=== PATIENT | female | born 1990 | race Caucasian/White ===

== ENCOUNTER → 2016-06-13 | Outpatient (CLI) | payer OTHER ==
[~2016-06-13] MED LIST: ACET50TA PO; IBUP80TA PO; IRON65TA PO; LABE20TAB PO; MOTR200T44 PO; PERC5TAB6 PO; PERCOCET PO; PRENTAB40 PO; PRENTAB55 PO; PROC10CA PO
--- NOTE | 2016-06-13 18:01 | REP ---
Obstetric sonography: History: Supervision of for anatomy. Findings: Scanning through the gravid uterus demonstrates a viable single intrauterine gestation in a cephalic lie. motion is observed and heart rate is recorded at 158 beats per minute. An anterior grade zero placenta is seen without evidence of previa or abruption. Amniotic fluid is subjectively normal. Closed cervical length is measured at 3.8 cm transabdominally. No extrauterine abnormality is observed. No anomaly is seen. There was less than optimal visualization of face and profile, three-vessel cord, kidneys, and spine due to position. The following anatomic structures are identified and felt to be unremarkable: cranium, choroid plexus, cavum, cerebellum and posterior fossa, lungs, four-chamber heart with left and right ventricular outflow tract views, diaphragm, left-sided stomach, abdominal wall cord insertion, urinary bladder, upper and lower extremities. Biometry chart: BPD 4.2 cm = 18 weeks 6 days Head circumference 16.1 cm = 19 weeks 0 days Abdominal circumference 14.1 cm = 19 weeks 3 days Femur length 3.0 cm = 19 weeks 1 day Humeral length 2.9 cm = 19 weeks 3 days HC/AC ratio normal 1.15, cephalic index normal 0.72, estimated weight 281 grams 0 pounds 9 ounces 44th percentile for 19 weeks 2 days. Impression: Viable single intrauterine gestation at 19 weeks 1 day by today's composite sonographic criteria. CARLOS by today's sonography 11/06/2016. anatomic survey less than complete regarding face, three-vessel cord, kidneys, and spine. Signed by Judd Colon MD 06/13/2016 08:06 P
== END ==
LOC: M RAD 15:46
PROVIDERS: ATTEND Specialist
DX: Z34.82 Encounter for supervision of other normal pregnancy, second trimester (principal); Z3A.19 19 weeks gestation of pregnancy

== ENCOUNTER → 2016-07-04 | Outpatient (CLI) | payer OTHER ==
--- NOTE | 2016-07-06 08:05 | REP ---
OB ULTRASOUND: Real-time sonographic evaluation of the gravid uterus performed. Transabdominal and endovaginal technique is utilized. There is a single living intrauterine gestation, estimated gestational age 22 weeks 2 days. EDC 11/05/2016. Today's measurements indicate appropriate growth. BPD 51 mm 21 weeks 2 days, 23rd percentile HC 198 mm 22 weeks 0 days, 40th percentile AC 165 mm 21 weeks 4 days, 35th percentile FL 39 mm 22 weeks 2 days, 51st percentile HC/AC ratio 1.20 within normal range. Estimated weight 460 grams, 33rd percentile. Cervix is closed and measures 4.4 cm in length. heart rate 157 beats per minute. SEEN/GROSSLY UNREMARKABLE Lateral ventricles Yes Posterior fossa Yes Upper lip Yes Four-chamber heart Yes LVOT Yes RVOT Yes Stomach Yes Cord insertion Yes Three vessel cord Yes Kidneys Yes Bladder Yes Spine Lumbar spine not well visualized. position: Breech. Placenta: Anterior and grade 0 with no previa or abruption. Amniotic fluid: Within normal limits. Signed by Jordan Monaco MD 07/06/2016 12:41 P
== END ==
LOC: M RAD 15:49
PROVIDERS: ATTEND Specialist
DX: Z34.82 Encounter for supervision of other normal pregnancy, second trimester (principal); Z3A.22 22 weeks gestation of pregnancy; O32.1XX0 Maternal care for breech presentation, not applicable or unspecified

== ENCOUNTER 2016-07-08 12:21 | Outpatient (CLI) | payer OTHER ==
[2016-07-08] VITALS (36 sets, daily range): BP systolic 103–183; BP diastolic 56–100
[~2016-07-08] VITALS: Ht 160 cm; Wt 132.0 kg
[2016-07-08] MEDS ORDERED: LABETALOL HCL 100 MG/20 ML VIAL IV STA ×3 (13:14→16:12)
[2016-07-08 14:14] LABS: MEAN CORPUSCULAR HEMOGLOBIN 27.3 pg (27.0-33.0); MEAN CORPUSCULAR HGB CONC 33.3 g/dl (32.0-36.5); RED CELL DISTRIBUTION WIDTH 13.8 % (11.5-14.5); WHITE BLOOD COUNT 9.9 K/mm3 (4.0-10.0)
[2016-07-08 14:34] LABS: ALT/SGPT 9 U/L (12-78); AST/SGOT 8 U/L (15-37); BILIRUBIN,TOTAL 0.2 MG/DL (0.2-1.0); CREATININE FOR GFR 0.54 MG/DL (0.55-1.02); GLOMERULAR FILTRATION RATE > 60.0 (>60); URIC ACID 3.7 MG/DL (2.6-6.0)
[2016-07-08] MEDS ORDERED: ACETAMINOPHEN 500 MG TAB PO PRN (16:15)
--- NOTE | 2016-07-08 17:39 | HPE ---
DATE OF ADMISSION: 07/08/2016 HISTORY: 25-year-old 3, para 2-1-0-4 female at 22-6/7 weeks gestation by a 7 week ultrasound, with estimated date of confinement (EDC) of 11/05/2016, presents to the office with increased swelling in her feet, hands, and face for 1 day, she has a mild headache, however she has had a headache intermittently throughout . Her blood pressure in the office was noted to be 174/108. She has a history of chronic hypertension that predates . She was sent to triage for evaluation. COURSE: The patient initiated care at 7 weeks gestation on 03/25/2016. She came into the on both nifedipine and labetalol. She is intermittently compliant with her blood pressure medications. She has a history of chronic hypertension. Blood pressures have been reasonably controlled on the regimen of labetalol and nifedipine until a visit on 07/08/2016. OBSTETRICAL HISTORY: 1. January 2009: 37 week vaginal delivery of 8 pound 1 ounce male infant, was complicated by hypertension. 2. December 2013: 38 week vaginal delivery of a 9 pound 2 ounce female infant. 3. January 2015: 32 week section for twins. MEDICAL HISTORY: 1. Hypertension. The patient takes nifedipine and labetalol. SURGICAL HISTORY: section. ALLERGIES: No known drug allergies. SOCIAL HISTORY: The patient denies cigarettes, alcohol, or drug use. FAMILY HISTORY: Noncontributory. PHYSICAL EXAMINATION: Blood pressure 174/108, weight 278 pounds, urine protein 1+. She is in no apparent distress. HEAD and NECK EXAM: Normal. LUNGS: Clear. HEART: Regular rate and rhythm. ABDOMEN: Nontender, gravid. heart tones category 1. EXTREMITIES: 1+ edema in the lower extremities. Trace edema in her hands. NEUROLOGICAL: Deep tendon reflexes are 1+. LABORATORY DATA: Blood type O positive, Rubella immune, RPR nonreactive, hepatitis B and C negative. ASSESSMENT: 25-year-old 3, para 2-1-0-4 female at 22-6/7 weeks gestation with a history of chronic hypertension presents with an exacerbation of blood pressure. The patient will be sent to the hospital for monitoring and evaluation. She will be given antihypertensives to control blood pressure. Repeat preeclampsia profile will be ordered. I will adjust her oral regimen as necessary to maintain blood pressures in a reasonable range.
[2016-07-08] MEDS: LABETALOL 200 MG TAB PO SCH (21:09)
[2016-07-08] MEDS: FAMOTIDINE 20 MG TAB PO SCH (22:56)
[2016-07-09] VITALS (18 sets, daily range): BP systolic 126–160; BP diastolic 69–93
[2016-07-09] MEDS: MULTIVITAMINS CHILDREN'S CHEWABLE TABLET PO SCH ×2 (09:00→10:14)
[2016-07-09] MEDS ORDERED: NIFEdipine 60 MG XL TAB PO SCH (09:00)
[2016-07-09] MEDS: FAMOTIDINE 20 MG TAB PO SCH (09:34)
[2016-07-09] MEDS: LABETALOL 200 MG TAB PO SCH (09:34)
[2016-07-09 15:23] LABS: CREATININE, SERUM 0.5 MG/DL (0.6-1.0)
[2016-07-09 15:24] LABS: CREATININE CLEARANCE, URINE 243.7 ML/MIN (75-115)
== END 2016-07-09 15:05 | disposition home or self-care (01) ==
LOC: M LDO 12:21
PROVIDERS: ATTEND Advanced Practice Midwife
DX: O10.912 Unspecified pre-existing hypertension complicating pregnancy, second trimester (principal); Z3A.22 22 weeks gestation of pregnancy; Z79.899 Other long term (current) drug therapy

== ENCOUNTER → 2016-07-22 | Outpatient (CLI) | payer OTHER ==
--- NOTE | 2016-07-22 18:47 | REP ---
OB ULTRASOUND: Real-time sonographic evaluation of the gravid uterus is performed. There is a single living intrauterine gestation. Estimated gestational age is 24 weeks 6 days with EDC 11/05/2016. Today's measurements indicate appropriate growth. BPD 56 mm = 22 weeks 2 days, 6th percentile HC 230 mm = 25 weeks 0 days, 53rd percentile AC 204 mm = 25 weeks 0 days, 51st percentile FL 45 mm = 24 weeks 5 days, 47th percentile HC/AC ratio 1.13, within normal range. Estimated weight 749 grams, 44th percentile. SEEN/GROSSLY UNREMARKABLE Lateral ventricles yes Posterior fossa yes Upper lip no Four-chamber heart yes LVOT no RVOT yes Stomach yes Cord insertion yes Three vessel cord yes Kidneys yes Bladder yes Spine yes position: Transverse with head to the maternal right side. Placenta: Anterior and grade 1 with no previa or abruption. Amniotic fluid: Within normal limits. Signed by Jordan Monaco MD 07/25/2016 08:33 A
== END ==
LOC: M RAD 16:07
PROVIDERS: ATTEND Specialist
DX: Z34.82 Encounter for supervision of other normal pregnancy, second trimester (principal); Z3A.24 24 weeks gestation of pregnancy

== ENCOUNTER 2016-07-28 16:09 | Outpatient (CLI) | payer OTHER ==
[~2016-07-28] VITALS: Ht 160 cm; Wt 122.0 kg
[2016-07-28] VITALS (11 sets, daily range): BP systolic 133–179; BP diastolic 76–113
[2016-07-28] MEDS ORDERED: LABETALOL HCL 100 MG/20 ML VIAL IV STA ×2 (17:00→17:17)
[2016-07-28] MEDS ORDERED: LABETALOL HCL 100 MG/20 ML VIAL As Ordered ONE (17:03)
[2016-07-28] MEDS ORDERED: LR 1,000 ML IV SCH (18:17)
[2016-07-28] MEDS ORDERED: LABETALOL 200 MG TAB PO ONE (19:00)
[2016-07-28] MEDS ORDERED: ACETAMINOPHEN 500 MG TAB PO ONE (19:15)
== END 2016-07-28 20:36 | disposition home or self-care (01) ==
LOC: M LDO 16:09
PROVIDERS: ATTEND Obstetrics & Gynecology
DX: O10.912 Unspecified pre-existing hypertension complicating pregnancy, second trimester (principal); O99.612 Diseases of the digestive system complicating pregnancy, second trimester; K52.9 Noninfective gastroenteritis and colitis, unspecified; Z3A.25 25 weeks gestation of pregnancy; Z79.899 Other long term (current) drug therapy

== ENCOUNTER → 2016-08-09 | Outpatient (CLI) | payer OTHER ==
[2016-08-09 14:09] LABS: BASO % 0.4 % (0.0-1.0); EOS # 0.2 K/mm3 (0.0-0.50); EOS % 2.3 % (0.0-3.0); LARGE UNSTAINED CELL # 0.1 K/mm3 (0.0-0.4); LARGE UNSTAINED CELL % 1.2 % (0.0-4.0); LYMPH # 1.7 K/mm3 (1.5-6.5); MEAN CORPUSCULAR HEMOGLOBIN 27.3 pg (27.0-33.0); MEAN CORPUSCULAR HGB CONC 32.7 g/dl (32.0-36.5); MEAN CORPUSCULAR VOLUME 83.5 fl (80.0-96.0); MONO # 0.3 K/mm3 (0.0-0.8); MONO % 3.5 % (0.0-5.0); NEUTROPHILS # 6.3 K/mm3 (1.8-7.7); NEUTROPHILS % 73.5 % (36.0-66.0); PLATELET COUNT, AUTOMATED 220 k/mm3 (150-450); RED CELL DISTRIBUTION WIDTH 14.2 % (11.5-14.5); WHITE BLOOD COUNT 8.5 K/mm3 (4.0-10.0)
== END ==
LOC: M LAB 11:54
PROVIDERS: ATTEND Specialist
DX: Z34.82 Encounter for supervision of other normal pregnancy, second trimester (principal)

== ENCOUNTER 2016-08-26 14:36 | Outpatient (CLI) | payer OTHER ==
[2016-08-26] VITALS (9 sets, daily range): BP systolic 163–187; BP diastolic 92–116
[~2016-08-26] VITALS: Ht 160 cm; Wt 126.0 kg
[2016-08-26] MEDS ORDERED: LABETALOL HCL 100 MG/20 ML VIAL IV STA (16:31)
[2016-08-26 16:38] LABS: MEAN CORPUSCULAR HEMOGLOBIN 28.7 pg (27.0-33.0); MEAN CORPUSCULAR HGB CONC 34.8 g/dl (32.0-36.5); MEAN CORPUSCULAR VOLUME 82.3 fl (80.0-96.0); RED CELL DISTRIBUTION WIDTH 14.8 % (11.5-14.5); WHITE BLOOD COUNT 8.2 K/mm3 (4.0-10.0)
[2016-08-26] MEDS ORDERED: CALCIUM GLUCONATE 1,000 MG in D5W MINI-BAG PLUS 100 ML IV PRN (17:00)
[2016-08-26 17:01] LABS: ALT/SGPT 18 U/L (12-78); AST/SGOT 29 U/L (15-37); BILIRUBIN,TOTAL 0.3 MG/DL (0.2-1.0); CREATININE FOR GFR 0.61 MG/DL (0.55-1.02); GLOMERULAR FILTRATION RATE > 60.0 (>60); URIC ACID 5.1 MG/DL (2.6-6.0)
[2016-08-26] MEDS ORDERED: LR 1,000 ML IV SCH (17:14)
[2016-08-26] MEDS ORDERED: hydrALAZINE INJ 20 MG/ML VIAL IV ONE ×2 (17:30→19:15)
[2016-08-26] MEDS ORDERED: MAG Sulf (L&D) 4 GM/100 ML 4 GM in APPROPRIATE DILUENT 1 EA IV ONE (17:30)
[2016-08-26] MEDS ORDERED: BETAMETHASONE SOLUSPAN 6MG/ML INJ 5ML (J0702) IM SCH (17:30)
[2016-08-26] MEDS ORDERED: MAG Sulf (OBGYN) 20GM/500ML 20,000 MG in APPROPRIATE DILUENT 1 EA IV SCH (18:00)
--- NOTE | 2016-08-26 18:16 | REP ---
Obstetric sonography: History: Supervision of growth study biophysical profile. Unstable blood pressure. Findings: Scanning through the gravid uterus demonstrates a viable single intrauterine gestation in a cephalic lie. motion is observed and heart rate is recorded at 153 beats per minute. An anterior grade 2 placenta is seen without evidence of previa or abruption. Amniotic fluid is subjectively normal. Closed cervical length is normal measuring 3.6 cm. No extrauterine abnormality is observed. There has been less than expected interval growth. The umbilical cord is seen draping across shoulders. Biophysical profile score is 8 out of a possible eight. Amniotic fluid is subjectively normal. SD ratio in the umbilical cord artery by Doppler is elevated at 7.66. There is very little flow in diastole. Hiccupping was noted in the fetus. Otherwise, no breathing motion. Biometry chart: BPD 6.6 cm = 26 weeks 4 days Head circumference 24.7 cm = 26 weeks 6 days Abdominal 22.2 cm = 26 weeks 4 days Femur length 4.8 cm = 26 weeks 1 day Humeral length 4.5 cm = 26 weeks 5 days HC/AC ratio normal 1.11, cephalic index normal 0.74, estimated weight 938 grams 2 pounds 1 ounce less than 30 percentile for 29 weeks 6 days. Impression: 1. Viable single intrauterine gestation at 26 weeks 4 days by today's composite criteria. Expected gestational age estimate based on prior sonography is 29 weeks 5 days. Estimated weight is in the less than 3rd percentile. 2. SD ratio in the umbilical cord artery by Doppler is markedly elevated at 7.66. There is very little diastolic flow visible. Preliminary report is provided at the time of the exam. Signed by Judd Colon MD 08/26/2016 08:52 P
--- NOTE | 2016-08-26 19:38 | DSES ---
DATE OF ADMISSION: 08/26/2016 DATE OF TRANSFER: 08/26/2016 HISTORY AND PHYSICAL AND TRANSFER NOTE REASON FOR TRANSFER: 1. Chronic hypertension with severely elevated blood pressures. 2. Uterine growth restriction in less than 3rd percentile. HISTORY OF THE PRESENT ILLNESS: Mrs. Cortez is a 25-year-old 4, para 4 who presents at 29 weeks 6 days estimated gestational age via 5-week ultrasound, here for severely elevated blood pressures. Mrs. Cortez is a patient with known chronic hypertension. She initiated her in the first trimester and was initially on nifedipine. Throughout this , her blood pressure medication has been adjusted. Currently taking 600 mg of labetalol twice a day, along with 60 mg of nifedipine. She has had two other hospital admissions for management of her blood pressures. On the day of presentation, she presented for scheduled appointment and was noted to have severely elevated blood pressures 160s over 110s. She denied any symptoms to include headache, visual changes, abdominal pain. Also denied vaginal bleeding, leakage of fluid or contractions. She does report active movement. During her evaluation in labor and delivery, she had consistently severely elevated blood pressure systolics 170s to 180s. She was given 20 mg of labetalol , which initially lowered her blood pressure and then received an additional 15 mg of hydralazine to continue to manage her blood pressures below 160 systolic, 110 diastolic. She also had a transabdominal ultrasound, showed the fetus with an estimated weight of 938 grams, placing in less than the 3rd percentile. This was a significant decrease from her previous growth on 07/22/2016 when the fetus was 749 grams in the 44th percentile. PAST MEDICAL HISTORY: Chronic hypertension. PAST SURGICAL HISTORY: She has had one section. PAST OBSTETRICAL HISTORY: She is a 4, para 4. She has had two term vaginal deliveries. Both of these pregnancies were complicated by hypertension. Her last was a twin where she was delivered at 32 weeks by section for chronic hypertension with superimposed preeclampsia. MEDICATIONS: Include: - labetalol 600 mg twice a day - nifedipine ER 60 mg daily ALLERGIES: She has no known drug allergies. SOCIAL HISTORY: She denies any alcohol, tobacco or drug use during the . PHYSICAL EXAMINATION: Her blood pressure currently is 163/92. She is afebrile. Her pulse is 77. She has a reassuring heart rate tracing. heart rate is 140, active, moderate variability. No contractions on tocometer. GENERAL APPEARANCE: Well appearing, no acute distress. LUNGS: Clear to auscultation bilaterally. CARDIOVASCULAR: Heart regular rate and rhythm. ABDOMEN: Gravid, nontender. Her labs upon admission. Her hemoglobin was 13.3, hematocrit 38.2, platelets 226. She had a creatinine of 0.6, uric acid 5.1. AST, ALT 29 and 18 respectively. Her labs: Her blood type is O positive, antibody screen is negative, rubella is immune, RPR is nonreactive. Hepatitis surface antigen is negative. HIV is negative. Hepatitis C is nonreactive. Chlamydia and gonorrhea screens are negative. She had a normal one-hour Glucola. Her GBS, which was obtained today, is pending. IMAGING: Her ultrasound today, she did have a biophysical profile which was 8 out of 8. Amniotic fluid appeared to be normal. Estimated weight was 938 grams , less than the 3rd percentile with markedly elevated cord Doppler showing little to no end diastolic flow. ASSESSMENT: 1. Mrs. Cortez is a 25-year-old 4, para 4 who is at 29 weeks 6 days estimated gestational age with chronic hypertension, showing severe features with markedly elevated blood pressures. 2. Intrauterine growth restriction. Less than 3rd percentile with no end diastolic flow on cord Dopplers. -Both mom and fetus are currently stable. PLAN: 1. The patient management has been initiated with blood pressure medication, including nifedipine and labetalol. 2. Magnesium sulfate has also been started. She received a 4 gram loading dose, as well as 2 grams per hour. 3. She has received 12 mg of betamethasone for lung maturity. 4. I discussed this case with Dr. Saldaña at the center in [place] who accepted the patient for transfer. I have discussed the patient's diagnosis as well as her plan of care. I discussed transfer to the center secondary to her level of prematurity with the potential of delivery. All questions have been answered, and she agrees with plan of care and has accepted transfer. JULIUS
== END 2016-08-26 20:15 | disposition short-term general hospital (02) ==
LOC: M LDO 14:36
PROVIDERS: ATTEND Obstetrics & Gynecology
DX: O10.913 Unspecified pre-existing hypertension complicating pregnancy, third trimester (principal); O34.219 Maternal care for unspecified type scar from previous cesarean delivery; O36.5930 Maternal care for other known or suspected poor fetal growth, third trimester, not applicable or unspecified; Z79.899 Other long term (current) drug therapy; Z3A.29 29 weeks gestation of pregnancy
CPT/HCPCS: 59025; 76816; 76819; 76820; 82247; 82565; 83615; 84450; 84460; 84550; 85027; 87081; 87186; 96372; 96374; 96375; 96376; J0702; J3475

== ENCOUNTER → 2016-09-21 | Outpatient (REF) | payer OTHER | LOC: M LAB REF 15:26 | PROVIDERS: ATTEND Physician Assistant Medical | DX: R19.7 Diarrhea, unspecified (principal) ==

== ENCOUNTER 2017-01-18 01:30 | Emergency (ER) | payer OTHER ==
[~2017-01-18] VITALS: Ht 160 cm; Wt 120.5 kg
[~2017-01-18 01:30] MED LIST changes: +PERC5TAB12 PO; -PERC5TAB6 PO
[2017-01-18 01:36] VITALS: BP 189/115
[2017-01-18] MEDS ORDERED: HYDR25TAB PO (01:43)
[2017-01-18] MEDS ORDERED: VENL75CA2 PO (01:43)
[2017-01-18] MEDS ORDERED: IBUP-1022 PO (01:43)
== END 2017-01-18 02:18 | disposition left against medical advice (07) ==
LOC: M ED 01:30
DX: R10.9 Unspecified abdominal pain (principal); Z53.29 Procedure and treatment not carried out because of patient's decision for other reasons

== ENCOUNTER → 2017-01-19 | Outpatient (REF) | payer OTHER ==
[~2017-01-19] MED LIST changes: +HYDR25TAB PO; +IBUP-1022 PO; +VENL75CA2 PO
[2017-01-19 21:36] LABS: ANION GAP 7 MEQ/L (8-16); BLOOD UREA NITROGEN 14 MG/DL (7-18); CARBON DIOXIDE LEVEL 27 MEQ/L (21-32); CHLORIDE LEVEL 107 MEQ/L (98-107); CREATININE FOR GFR 0.67 MG/DL (0.55-1.02); GLOMERULAR FILTRATION RATE > 60.0 (>60); GLUCOSE, FASTING 86 MG/DL (70-105); SODIUM LEVEL 141 MEQ/L (136-145)
== END ==
LOC: M SFHCADAM 15:55
PROVIDERS: ATTEND Physician Assistant
DX: I10 Essential (primary) hypertension (principal); F53 Mental and behavioral disorders associated with the puerperium, not elsewhere classified

== ENCOUNTER → 2017-05-10 | Outpatient (REF) | payer OTHER ==
[2017-05-10 14:36] LABS: ALBUMIN/GLOBULIN RATIO 1.11 (1.00-1.93); ALKALINE PHOSPHATASE 102 U/L (45-117); ALT/SGPT 14 U/L (12-78); ANION GAP 10 MEQ/L (8-16); AST/SGOT 11 U/L (7-37); BILIRUBIN,TOTAL 0.6 MG/DL (0.2-1.0); BLOOD UREA NITROGEN 16 MG/DL (7-18); CALCIUM LEVEL 9.4 MG/DL (8.5-10.1); CARBON DIOXIDE LEVEL 28 MEQ/L (21-32); CHLORIDE LEVEL 101 MEQ/L (98-107); CREATININE FOR GFR 0.82 MG/DL (0.55-1.02); GLOMERULAR FILTRATION RATE > 60.0 (>60); GLUCOSE, FASTING 104 MG/DL (70-100); LIPASE 95 U/L (73-393); POTASSIUM SERUM 4.2 MEQ/L (3.5-5.1); SODIUM LEVEL 139 MEQ/L (136-145); TOTAL PROTEIN 7.6 GM/DL (6.4-8.2)
[2017-05-10 14:39] LABS: BASO % 0.2 % (0.0-1.0); EOS # 0.2 10^3/uL (0.0-0.50); EOS % 2.2 % (0.0-3.0); HEMATOCRIT 47.7 % (36.0-47.0); HEMOGLOBIN 14.2 g/dl (12.0-16.0); IMMATURE GRANULOCYTE % 0.3 % (0-0); LYMPH # 1.6 10^3/uL (1.5-6.5); MEAN CORPUSCULAR HEMOGLOBIN 26.1 pg (27.0-33.0); MEAN CORPUSCULAR HGB CONC 29.8 g/dl (32.0-36.5); MEAN CORPUSCULAR VOLUME 87.5 fl (80.0-96.0); MONO # 0.4 10^3/uL (0.0-0.8); MONO % 3.7 % (0.0-5.0); NEUTROPHILS # 7.7 10^3/uL (1.8-7.7); NEUTROPHILS % 77.6 % (36.0-66.0); PLATELET COUNT, AUTOMATED 404 10^3/uL (150-450); RED BLOOD COUNT 5.45 10^6/uL (4.00-5.40); RED CELL DISTRIBUTION WIDTH 13.2 % (11.5-14.5)
== END ==
LOC: M LABDRWAD 13:56
DX: R11.10 Vomiting, unspecified (principal); R19.7 Diarrhea, unspecified

== ENCOUNTER → 2017-05-15 | Outpatient (REF) | payer OTHER | LOC: M LAB REF 18:50 | DX: Z12.4 Encounter for screening for malignant neoplasm of cervix (principal) | CPT/HCPCS: 88142 ==

== ENCOUNTER → 2017-05-17 | Outpatient (CLI) | payer OTHER | LOC: M RAD 13:41 | DX: R10.2 Pelvic and perineal pain (principal); N83.202 Unspecified ovarian cyst, left side | CPT/HCPCS: 76856 ==

== ENCOUNTER 2017-07-08 21:32 | Emergency (ER) | payer OTHER ==
[2017-07-09 01:01] LABS: BASO % 0.2 % (0.0-1.0); EOS # 0.2 10^3/uL (0.0-0.50); EOS % 2.4 % (0.0-3.0); HEMATOCRIT 35.5 % (36.0-47.0); HEMOGLOBIN 11.4 g/dl (12.0-16.0); IMMATURE GRANULOCYTE % 0.3 % (0-3.0); LYMPH # 2.4 10^3/uL (1.5-6.5); LYMPH % 24.8 % (24.0-44.0); MEAN CORPUSCULAR HEMOGLOBIN 26.2 pg (27.0-33.0); MEAN CORPUSCULAR HGB CONC 32.1 g/dl (32.0-36.5); MEAN CORPUSCULAR VOLUME 81.6 fl (80.0-96.0); MONO # 0.3 10^3/uL (0.0-0.8); MONO % 3.4 % (0.0-5.0); NEUTROPHILS # 6.5 10^3/uL (1.8-7.7); NEUTROPHILS % 68.9 % (36.0-66.0); PLATELET COUNT, AUTOMATED 325 10^3/uL (150-450); RED BLOOD COUNT 4.35 10^6/uL (4.00-5.40); RED CELL DISTRIBUTION WIDTH 13.3 % (11.5-14.5); WHITE BLOOD COUNT 9.5 10^3/uL (4.0-10.0)
[2017-07-09 01:06] LABS: APPEARANCE, URINE HAZY (CLEAR); BACTERIA, URINE AUTO NEGATIVE (NEGATIVE); BILIRUBIN, URINE AUTO NEGATIVE (NEGATIVE); BLOOD, URINE BLOOD NEGATIVE (NEGATIVE); COLOR, URINE YELLOW (YELLOW); GLUCOSE, URINE (UA) AUTO NEGATIVE (NEGATIVE); KETONE, URINE AUTO NEGATIVE (NEGATIVE); LEUKOCYTE ESTERASE, URINE AUTO NEGATIVE (NEGATIVE); MUCUS, URINE SMALL (NEGATIVE); NITRITE, URINE AUTO NEGATIVE (NEGATIVE); PROTEIN, URINE AUTO NEGATIVE (NEGATIVE); RBC, URINE AUTO 1 /HPF (0-3); SPECIFIC GRAVITY URINE AUTO 1.025 (1.002-1.035); SQUAMOUS EPITHELIAL CELL UR AU 5 /HPF (0-6); UROBILINOGEN, URINE AUTO 0.2 mg/dL (0.0-2.0); WBC, URINE AUTO 2 /HPF (0-3)
[2017-07-09 01:27] LABS: ALBUMIN 3.2 GM/DL (3.2-5.2); ALBUMIN/GLOBULIN RATIO 0.91 (1.00-1.93); ALKALINE PHOSPHATASE 91 U/L (45-117); ALT/SGPT 15 U/L (12-78); ANION GAP 5 MEQ/L (8-16); AST/SGOT 18 U/L (7-37); BILIRUBIN,TOTAL 0.4 MG/DL (0.2-1.0); BLOOD UREA NITROGEN 18 MG/DL (7-18); CARBON DIOXIDE LEVEL 27 MEQ/L (21-32); CHLORIDE LEVEL 108 MEQ/L (98-107); CREATININE FOR GFR 0.67 MG/DL (0.55-1.30); GLOMERULAR FILTRATION RATE > 60.0 (>60); GLUCOSE, FASTING 96 MG/DL (70-100); LIPASE 77 U/L (73-393); POTASSIUM SERUM 3.8 MEQ/L (3.5-5.1); SODIUM LEVEL 140 MEQ/L (136-145); TOTAL PROTEIN 6.7 GM/DL (6.4-8.2)
[2017-07-09] MEDS: GASTROGRAFIN SOLUTION 30ML PO ×2 (01:40→02:10)
[2017-07-09] MEDS: ONDANSETRON 4MG/2ML VIAL (J2405) IV (01:40)
[2017-07-09] MEDS: NS 1,000 ML IV (01:41)
[2017-07-09] MEDS: MORPHINE 4 MG/ML 1ML VIAL (J2270) IV (01:41)
[2017-07-09] MEDS ORDERED: ISOVUE-370 76% 100ML VIAL (Q9967) As Ordered (02:57)
[2017-07-09 03:21] LABS: CONTROL LINE HCG INT CTR LINE PRESENT; HCG, SERUM QUALITATIVE NEGATIVE (NEGATIVE)
[2017-07-09] MEDS: predniSONE 20 MG TAB PO (04:54)
[2017-07-09] MEDS: OXYCODONE/APAP 5MG/325MG(BULK FOR ED) 1 TABLET PO (04:54)
[2017-07-09] MEDS: LISINOPRIL 20 MG TAB PO (04:55)
== END 2017-07-09 05:02 | disposition home or self-care (01) ==
LOC: M ED 21:32
DX: K52.9 Noninfective gastroenteritis and colitis, unspecified (principal); I10 Essential (primary) hypertension; Z79.899 Other long term (current) drug therapy
CPT/HCPCS: J2270

== ENCOUNTER 2017-09-12 06:57 | Day surgery (SDC) | payer OTHER ==
[2017-09-12] MEDS: NS 1,000 ML IV (07:26)
[2017-09-12] MEDS ORDERED: PROPOFOL 200 MG/20 ML VIAL As Ordered ×3 (07:37→08:20)
== END 2017-09-12 08:55 | disposition home or self-care (01) ==
LOC: M OPP 06:57
DX: R93.3 Abnormal findings on diagnostic imaging of other parts of digestive tract (principal); K52.9 Noninfective gastroenteritis and colitis, unspecified; D12.3 Benign neoplasm of transverse colon; K63.89 Other specified diseases of intestine; K64.8 Other hemorrhoids; I10 Essential (primary) hypertension; F41.9 Anxiety disorder, unspecified; Z79.899 Other long term (current) drug therapy; Z80.0 Family history of malignant neoplasm of digestive organs
CPT/HCPCS: 45385

== ENCOUNTER → 2017-11-07 | Outpatient (REF) | payer OTHER | LOC: M LAB REF 12:19 | DX: J02.9 Acute pharyngitis, unspecified (principal) | CPT/HCPCS: 87081 ==

== ENCOUNTER 2017-11-09 20:18 | Emergency (ER) | payer OTHER ==
[2017-11-09] MEDS: MORPHINE 10 MG/ML 1ML VIAL (J2270) IM ×2 (22:06)
== END 2017-11-09 22:39 | disposition home or self-care (01) ==
LOC: M ED 20:18
DX: B08.4 Enteroviral vesicular stomatitis with exanthem (principal); I10 Essential (primary) hypertension; F32.9 Major depressive disorder, single episode, unspecified; Z79.899 Other long term (current) drug therapy
CPT/HCPCS: J2270

== ENCOUNTER → 2017-11-15 | Outpatient (REF) | payer OTHER | LOC: M SFHCADAM 19:20 | DX: R19.7 Diarrhea, unspecified (principal) ==

== ENCOUNTER 2018-03-03 22:59 | Emergency (ER) | payer OTHER ==
[2018-03-03] MEDS: KETOROLAC TROMETHAMINE 10 MG TAB PO (23:27)
[2018-03-04] MEDS: NITROFURANTOIN (MACROBID) 100 MG CAP PO (00:53)
== END 2018-03-04 00:55 | disposition home or self-care (01) ==
LOC: M ED 03-04 00:55
DX: N39.0 Urinary tract infection, site not specified (principal); N83.202 Unspecified ovarian cyst, left side; E66.9 Obesity, unspecified; I10 Essential (primary) hypertension; F41.9 Anxiety disorder, unspecified; Z87.42 Personal history of other diseases of the female genital tract; Z87.19 Personal history of other diseases of the digestive system; Z98.890 Other specified postprocedural states; Z79.899 Other long term (current) drug therapy
CPT/HCPCS: 76856

== ENCOUNTER → 2018-03-17 | Outpatient (REF) | payer OTHER | LOC: M LAB REF 16:25 | DX: J02.9 Acute pharyngitis, unspecified (principal) | CPT/HCPCS: 87081 ==

== ENCOUNTER → 2019-03-19 | Outpatient (REF) | payer OTHER ==
[~2019-03-19] MED LIST changes: +ACET-683 PO; -ACET50TA PO; +CHLO125TA PO; +DOCU100C16 PO; +IBUP200C25 PO; +KETO10TAB PO; +LIDO2JELLY; +LISI-538 PO; +MACR100C43 PO; +MAPA500T2 PO; +PRED20TA PO; +ZOFR4TAB14 PO
== END ==
LOC: M SFHCWAGY 09:34
PROVIDERS: ATTEND Specialist
DX: Z12.4 Encounter for screening for malignant neoplasm of cervix (principal); B37.3 Candidiasis of vulva and vagina

== ENCOUNTER → 2019-06-06 | Outpatient (REF) | payer OTHER ==
[2019-06-06 16:04] LABS: BASO % 0.3 % (0.0-1.0); EOS # 0.2 10^3/uL (0.0-0.5); EOS % 2.8 % (0.0-3.0); HEMATOCRIT 41.5 % (36.0-47.0); HEMOGLOBIN 13.4 g/dl (12.0-15.5); LYMPH # 1.7 10^3/uL (1.5-5.0); LYMPH % 27.5 % (24.0-44.0); MEAN CORPUSCULAR HEMOGLOBIN 27.4 pg (27.0-33.0); MEAN CORPUSCULAR HGB CONC 32.3 g/dl (32.0-36.5); MEAN CORPUSCULAR VOLUME 84.9 fl (80.0-96.0); MONO # 0.3 10^3/uL (0.0-0.8); MONO % 4.2 % (0.0-5.0); NEUTROPHILS % 64.9 % (36.0-66.0); PLATELET COUNT, AUTOMATED 354 10^3/uL (150-450); RED BLOOD COUNT 4.89 10^6/uL (4.00-5.40); WHITE BLOOD COUNT 6.1 10^3/uL (4.0-10.0)
[2019-06-06 16:40] LABS: ALBUMIN 3.8 GM/DL (3.2-5.2); ALT/SGPT 16 U/L (12-78); BILIRUBIN,TOTAL 0.3 MG/DL (0.2-1.0); BLOOD UREA NITROGEN 10 MG/DL (7-18); CALCIUM LEVEL 8.7 MG/DL (8.5-10.1); CARBON DIOXIDE LEVEL 26 MEQ/L (21-32); CHLORIDE LEVEL 106 MEQ/L (98-107); CREATININE FOR GFR 0.72 MG/DL (0.55-1.30); FREE T4 1.09 NG/DL (0.76-1.46); GLOMERULAR FILTRATION RATE > 60.0 (>60); GLUCOSE, FASTING 81 MG/DL (70-100); POTASSIUM SERUM 3.8 MEQ/L (3.5-5.1); SODIUM LEVEL 139 MEQ/L (136-145); TOTAL PROTEIN 7.2 GM/DL (6.4-8.2)
== END ==
LOC: M SFHCADAM 14:00
PROVIDERS: ATTEND Family Medicine
DX: R60.9 Edema, unspecified (principal)

== ENCOUNTER → 2019-06-26 | Outpatient (REF) | payer OTHER | LOC: M LAB REF 17:28 | PROVIDERS: ATTEND Physician Assistant | DX: J10.1 Influenza due to other identified influenza virus with other respiratory manifestations (principal) ==

== ENCOUNTER → 2019-08-09 | Outpatient (CLI) | payer OTHER | LOC: M LABSMTC 10:44 | PROVIDERS: ATTEND Family Medicine | DX: Z11.59 Encounter for screening for other viral diseases (principal) ==

== ENCOUNTER → 2020-03-23 | Outpatient (REF) | payer OTHER | LOC: M PLALAB 10:08 | PROVIDERS: ATTEND Obstetrics & Gynecology | DX: Z32.00 Encounter for pregnancy test, result unknown (principal) ==

== ENCOUNTER → 2020-10-13 | Outpatient (REF) | payer OTHER ==
[~2020-10-13] MED LIST changes: +HYDR-3490 PO; -HYDR25TAB PO; -LISI-538 PO; +LISI20TA33 PO
[2020-10-13 13:30] LABS: BLOOD UREA NITROGEN 8 MG/DL (7-18); CALCIUM LEVEL 8.4 MG/DL (8.5-10.1); CARBON DIOXIDE LEVEL 28 MEQ/L (21-32); CHLORIDE LEVEL 104 MEQ/L (98-107); CREATININE FOR GFR 0.65 MG/DL (0.55-1.30); FREE T4 0.87 NG/DL (0.76-1.46); GLOMERULAR FILTRATION RATE > 60.0 (>60); GLUCOSE, FASTING 92 MG/DL (70-100); POTASSIUM SERUM 4.4 MEQ/L (3.5-5.1); SODIUM LEVEL 137 MEQ/L (136-145)
== END ==
LOC: M SFHCADAM 10:12
PROVIDERS: ATTEND Physician Assistant
DX: G47.8 Other sleep disorders (principal); R68.82 Decreased libido; E66.01 Morbid (severe) obesity due to excess calories

== ENCOUNTER → 2020-10-26 | Outpatient (CLI) | payer OTHER | LOC: M LABSMTC 10:45 | PROVIDERS: ATTEND Anesthesiology | DX: Z01.812 Encounter for preprocedural laboratory examination (principal) ==

== ENCOUNTER → 2020-11-25 | Outpatient (CLI) | payer OTHER ==
[~2020-11-25] MED LIST changes: +OMEP-221
== END ==
LOC: M LABSMTC 09:59
PROVIDERS: ATTEND Anesthesiology
DX: Z01.818 Encounter for other preprocedural examination (principal)

== ENCOUNTER 2020-11-30 08:39 | Day surgery (SDC) | payer OTHER ==
[~2020-11-30] VITALS: Ht 160 cm; Wt 135.6 kg
[~2020-11-30 08:39] MED LIST changes: +LIDOCAINE 2% 100MG/5ML SDV (FOR ANES.) As Ordered ONE; +NS 1,000 ML IV ONE; +propofoL 200 MG/20 ML VIAL As Ordered ONE
--- NOTE | 2020-11-30 10:29 | ROOR ---
Patient Name: Shanta Cortez Procedure Date: 11/30/2020 9:46 AM Date of : 1990 Age: 30 Room: [facility] Gender: Female Note Status: Finalized Procedure: Colonoscopy Indications: High risk colon cancer surveillance: Personal history of colonic polyps Providers: Kali Gomez MD Referring MD: CINDY Almanzar Requesting Provider: Medicines: Monitored Anesthesia Care Complications: No immediate complications. Procedure: Pre-Anesthesia Assessment: - Prior to the procedure, a History and Physical was performed, and patient medications and allergies were reviewed. The patient is competent. The risks and benefits of the procedure and the sedation options and risks were discussed with the patient. All questions were answered and informed consent was obtained. Patient identification and proposed procedure were verified by the physician, the nurse and the anesthesiologist in the procedure room. Mental Status Examination: alert and oriented. Airway Examination: normal oropharyngeal airway and neck mobility. Respiratory Examination: clear to auscultation. CV Examination: normal. Prophylactic Antibiotics: The patient does not require prophylactic antibiotics. Prior Anticoagulants: The patient has taken no previous anticoagulant or antiplatelet agents. ASA Grade Assessment: II - A patient with mild systemic disease. After reviewing the risks and benefits, the patient was deemed in satisfactory condition to undergo the procedure. The anesthesia plan was to use monitored anesthesia care (MAC). Immediately prior to administration of medications, the patient was re-assessed for adequacy to receive sedatives. The heart rate, respiratory rate, oxygen saturations, blood pressure, adequacy of pulmonary ventilation, and response to care were monitored throughout the procedure. The physical status of the patient was re-assessed after the procedure. The Colonoscope was introduced through the anus and advanced to the terminal ileum, with identification of the appendiceal orifice and IC valve. The colonoscopy was performed without difficulty. The patient tolerated the procedure well. The quality of the bowel preparation was good. The terminal ileum, ileocecal valve, appendiceal orifice, and rectum were photographed. Scope insertion time was 3 minutes. Scope withdrawal time was 9 minutes. The total duration of the procedure was 15 minutes. Findings: The perianal and digital rectal examinations were normal. The terminal ileum appeared normal. A diminutive polyp was found in the recto-sigmoid colon. The polyp was sessile. The polyp was removed with a cold snare. Resection and retrieval were complete. Verification of patient identification for the specimen was done by the physician and nurse using the patient's name, date and medical record number. Estimated blood loss was minimal. Multiple small and large-mouthed diverticula were found from sigmoid to transverse colon. There was no evidence of diverticular bleeding. Non-bleeding external and internal hemorrhoids were found during retroflexion. The hemorrhoids were medium-sized. Impression: - The examined portion of the ileum was normal. - One diminutive polyp at the recto-sigmoid colon, removed with a cold snare. Resected and retrieved. - Moderate diverticulosis from sigmoid to transverse colon. There was no evidence of diverticular bleeding. - Non-bleeding external and internal hemorrhoids. Recommendation: - Patient has a contact number available for emergencies. The signs and symptoms of potential delayed complications were discussed with the patient. Return to normal activities tomorrow. Written discharge instructions were provided to the patient. - High fiber diet. - Continue present medications. - Use fiber, for example Citrucel, Fibercon, Konsyl or Metamucil. - Await pathology results. - Repeat colonoscopy in 5-10 years for surveillance based on pathology results. - Telephone GI clinic for pathology results in 2 weeks. - Return to GI clinic if persistent symptoms or new symptoms. - Return to primary care physician. Procedure Code(s): --- Professional --- 68224, Colonoscopy, flexible; with removal of tumor(s), polyp(s), or other lesion(s) by snare technique Diagnosis Code(s): --- Professional --- Z86.010, Personal history of colonic polyps K64.8, Other hemorrhoids K63.5, Polyp of colon K57.30, Diverticulosis of large intestine without perforation or abscess without bleeding CPT copyright 2019 [employer]. All rights reserved. The codes documented in this report are preliminary and upon notching machine operator review may be revised to meet current compliance requirements. Kali Gomez MD Kali Gomez MD 11/30/2020 10:29:41 AM Electronically signed by Kali Gomez MD Number of Addenda: 0 Note Initiated On: 11/30/2020 9:46 AM Estimated Blood Loss: Estimated blood loss was minimal.
[2020-11-30 10:51] VITALS: BP 129/77
== END 2020-11-30 10:50 | disposition home or self-care (01) ==
LOC: M OPP 08:39
PROVIDERS: ATTEND Internal Medicine Gastroenterology
DX: Z12.11 Encounter for screening for malignant neoplasm of colon (principal); Z86.010 Personal history of colon polyps; D12.6 Benign neoplasm of colon, unspecified; K57.30 Diverticulosis of large intestine without perforation or abscess without bleeding; K64.8 Other hemorrhoids; Z79.899 Other long term (current) drug therapy

== ENCOUNTER → 2021-01-27 | Outpatient (CLI) | payer OTHER ==
[~2021-01-27] MED LIST changes: -LIDOCAINE 2% 100MG/5ML SDV (FOR ANES.) As Ordered ONE; -NS 1,000 ML IV ONE; -propofoL 200 MG/20 ML VIAL As Ordered ONE
--- NOTE | 2021-01-28 13:33 | SLEEPCENT ---
DATE: 01/28/2021 ORDERED BY: Una Naidu Diagnostic nocturnal polysomnography was performed for evaluation of sleep physiology in this patient with a history of snoring and nonrestorative sleep. There was 7 hours and 20 minutes of data reviewed. There was 384.5 minutes of sleep identified. Sleep latency was prolonged at 43 minutes. REM latency was mildly prolonged at 106.5 minutes. Sleep architecture was good with three REM cycles. Overall sleep efficiency was good at 88.4%. The electrocardiogram showed a sinus rhythm with an average heart rate of 80 beats per minute. EEG showed normal waveforms for wake and sleep. There were only 21 respiratory events identified of 10 seconds in duration or greater for an apnea-hypopnea index of 3.3. The events seen were primarily obstructive, more frequent in the supine posture and more frequent in REM sleep. There was snoring noted throughout the study. Arousals from respiratory events occurred only 0.9 times per hour, and there were no significant oxygen desaturations below 90%. Some minor limb activity was appreciated. Limb movement arousal index was 3.7. IMPRESSION: Normal nocturnal polysomnography with snoring. RECOMMENDATION: Sleep positioning retraining for avoidance of the supine posture may be helpful given the clustering of respiratory events in REM in the supine position.
== END ==
LOC: M SLEEP 20:00
PROVIDERS: ATTEND Nurse Practitioner Adult Health
DX: R06.83 Snoring (principal)

== ENCOUNTER → 2021-03-03 | Outpatient (REF) | payer OTHER | LOC: M LABDRWAD 16:34 | PROVIDERS: ATTEND Obstetrics & Gynecology | DX: E34.9 Endocrine disorder, unspecified (principal); F52.0 Hypoactive sexual desire disorder; R53.83 Other fatigue ==

== ENCOUNTER 2022-10-18 16:30 | Emergency (ER) | payer OTHER ==
[~2022-10-18] VITALS: Ht 160 cm; Wt 120.5 kg
[~2022-10-18 16:30] MED LIST changes: -OMEP-221; +OMEP40CA5
[2022-10-18] MEDS ORDERED: IBUP200T46 PO (16:41)
[2022-10-18] MEDS ORDERED: ACET-907 PO (16:41)
[2022-10-18] MEDS ORDERED: KETOROLAC 30 MG/ML 1ML VIAL IV ONE (19:15)
[2022-10-18 20:01] LABS: BASO # 0.1 10^3/uL (0.0-0.2); BASO % 0.5 % (0.0-1.0); EOS # 0.4 10^3/uL (0.0-0.5); EOS % 4.1 % (0.0-3.0); HEMATOCRIT 41.5 % (36.0-47.0); HEMOGLOBIN 13.5 g/dl (12.0-15.5); LYMPH # 2.5 10^3/uL (1.5-5.0); LYMPH % 23.7 % (24.0-44.0); MEAN CORPUSCULAR HEMOGLOBIN 28.5 pg (27.0-33.0); MEAN CORPUSCULAR HGB CONC 32.5 g/dl (32.0-36.5); MEAN CORPUSCULAR VOLUME 87.7 fl (80.0-96.0); MONO # 0.4 10^3/uL (0.0-0.8); MONO % 3.7 % (2.0-8.0); NEUTROPHILS # 7.2 10^3/uL (1.5-8.5); NEUTROPHILS % 67.5 % (36.0-66.0); PLATELET COUNT, AUTOMATED 329 10^3/uL (150-450); RED BLOOD COUNT 4.73 10^6/uL (4.00-5.40); WHITE BLOOD COUNT 10.7 10^3/uL (4.0-10.0)
[2022-10-18] MEDS ORDERED: ISOVUE-370 76% 100ML VIAL As Ordered ONE (20:02)
[2022-10-18 20:30] VITALS: BP 127/84; TEMP 98.5; O2SAT 100
[2022-10-18 20:30] LABS: LIPASE 29 U/L (12-53)
[2022-10-18 20:32] LABS: ALBUMIN 3.6 G/DL (3.2-5.2); ALKALINE PHOSPHATASE 73 U/L (46-116); ALT/SGPT < 9 U/L (7.0-40); AST/SGOT 15 U/L (<34); BILIRUBIN,DIRECT < 0.1 MG/DL (<0.4); BILIRUBIN,TOTAL 0.2 MG/DL (0.3-1.2); TOTAL PROTEIN 6.4 G/DL (5.7-8.2)
[2022-10-18 20:42] LABS: HCG, SERUM QUALITATIVE NEGATIVE (NEGATIVE)
[2022-10-18] MEDS ORDERED: MACR100C43 PO (23:29)
[2022-10-18] MEDS ORDERED: IBUP-1022 PO (23:29)
[2022-10-18] MEDS ORDERED: NITROFURANTOIN (MACROBID) 100 MG CAP PO ONE (23:30)
== END 2022-10-18 23:46 | disposition home or self-care (01) ==
LOC: M ED 16:30
DX: N39.0 Urinary tract infection, site not specified (principal); N83.201 Unspecified ovarian cyst, right side; M51.36 Other intervertebral disc degeneration, lumbar region; I10 Essential (primary) hypertension; Z79.899 Other long term (current) drug therapy
CPT/HCPCS: 74177; 76830; 76856; 80047; 80076; 81001; 83690; 84703; 85025; 87086; 93976; 96374; 99284; J1885; Q9967

== ENCOUNTER → 2022-12-06 | Outpatient (REF) | payer OTHER ==
[~2022-12-06] MED LIST changes: +ACET-907 PO; +IBUP200T46 PO
[2022-12-06 13:30] LABS: BLOOD UREA NITROGEN 11 MG/DL (9-23); CALCIUM LEVEL 7.9 MG/DL (8.5-10.1); CARBON DIOXIDE LEVEL 29 MMOL/L (20-31); CHLORIDE LEVEL 104 MMOL/L (98-107); CHOLESTEROL LEVEL 213 MG/DL (<200); CHOLESTEROL RISK RATIO 6.17 (<5); FREE T4 1.05 NG/DL (0.89-1.76); GLOMERULAR FILTRATION RATE > 60.0 (>60); GLUCOSE, FASTING 96 MG/DL (60-100); HDL CHOLESTEROL 34.5 MG/DL (>40); LDL CHOLESTEROL 156.1 MG/DL (<100); NON-HDL-C 178.5 MG/DL; POTASSIUM SERUM 4.1 MMOL/L (3.5-5.1); SODIUM LEVEL 139 MMOL/L (136-145); THYROID STIMULATING HORMONE 1.287 uIU/ML (0.55-4.78); TRIGLYCERIDES LEVEL 112 MG/DL (<150)
[2022-12-06 13:52] LABS: CREATININE, URINE 65.5 MG/DL; MAU/CREAT RATIO 6.1 MCG/MG (0.0-30.0)
[2022-12-06 14:08] LABS: HEMOGLOBIN A1c 4.8 % (4.0-6.0)
== END ==
LOC: M SFHCADAM 10:34
PROVIDERS: ATTEND Physician Assistant
DX: Z83.49 Family history of other endocrine, nutritional and metabolic diseases (principal); E66.01 Morbid (severe) obesity due to excess calories; Z13.1 Encounter for screening for diabetes mellitus; Z82.49 Family history of ischemic heart disease and other diseases of the circulatory system; I10 Essential (primary) hypertension; Z13.220 Encounter for screening for lipoid disorders

== ENCOUNTER → 2023-03-13 | Outpatient (REF) | payer OTHER ==
[2023-03-13 16:32] LABS: APPEARANCE, URINE HAZY (CLEAR); BACTERIA, URINE AUTO 1+ (NEGATIVE); BILIRUBIN, URINE AUTO NEGATIVE (NEGATIVE); BLOOD, URINE BLOOD NEGATIVE (NEGATIVE); COLOR, URINE YELLOW (YELLOW); GLUCOSE, URINE (UA) AUTO NEGATIVE (NEGATIVE); KETONE, URINE AUTO NEGATIVE (NEGATIVE); LEUKOCYTE ESTERASE, URINE AUTO 3+ (NEGATIVE); NITRITE, URINE AUTO NEGATIVE (NEGATIVE); PROTEIN, URINE AUTO NEGATIVE (NEGATIVE); RBC, URINE AUTO 12 /HPF (0-3); SPECIFIC GRAVITY URINE AUTO 1.029 (1.002-1.035); SQUAMOUS EPITHELIAL CELL UR AU 6 /HPF (0-6); UROBILINOGEN, URINE AUTO 0.2 mg/dL (0.0-2.0); WBC, URINE AUTO 24 /HPF (0-3)
[2023-03-13 18:42] LABS: CHLAMYDIA DNA AMPLIFICATION POSITIVE (NEGATIVE); GC DNA AMPLIFICATION NEGATIVE (NEGATIVE)
== END ==
LOC: M LAB REF 16:06
PROVIDERS: ATTEND Physician Assistant Medical
DX: N39.0 Urinary tract infection, site not specified (principal); Z20.2 Contact with and (suspected) exposure to infections with a predominantly sexual mode of transmission

== ENCOUNTER → 2024-04-19 | Outpatient (REF) | payer OTHER ==
[2024-04-19 15:03] LABS: ALBUMIN 3.4 G/DL (3.2-5.2); ALKALINE PHOSPHATASE 84 U/L (35-104); ALT/SGPT 14 U/L (7.0-40); AST/SGOT 9 U/L (<34); BILIRUBIN,TOTAL 0.3 MG/DL (0.3-1.2); BLOOD UREA NITROGEN 17 MG/DL (9-23); CARBON DIOXIDE LEVEL 24 MMOL/L (20-31); CHLORIDE LEVEL 103 MMOL/L (98-107); CHOLESTEROL LEVEL 265 MG/DL (<200); CHOLESTEROL RISK RATIO 5.04 (<5); CREATININE FOR GFR 0.57 MG/DL (0.55-1.30); GLOMERULAR FILTRATION RATE > 60.0 (>60); GLUCOSE, FASTING 120 MG/DL (60-100); HDL CHOLESTEROL 52.5 MG/DL (>40); LDL CHOLESTEROL 201.7 MG/DL (<100); NON-HDL-C 212.5 MG/DL; POTASSIUM SERUM 4.7 MMOL/L (3.5-5.1); SODIUM LEVEL 139 MMOL/L (136-145); TOTAL PROTEIN 6.8 G/DL (5.7-8.2); TRIGLYCERIDES LEVEL 54 MG/DL (<150)
== END ==
LOC: M SFHCADAM 07:57
PROVIDERS: ATTEND Family Medicine
DX: I10 Essential (primary) hypertension (principal); E66.01 Morbid (severe) obesity due to excess calories; Z68.41 Body mass index [BMI] 40.0-44.9, adult; Z13.1 Encounter for screening for diabetes mellitus; E78.00 Pure hypercholesterolemia, unspecified

== ENCOUNTER → 2024-06-04 | Outpatient (CLI) | payer OTHER | LOC: M WHC 13:12 | PROVIDERS: ATTEND Physician Assistant | DX: N63.21 Unspecified lump in the left breast, upper outer quadrant (principal); R92.323 Mammographic fibroglandular density, bilateral breasts ==

== ENCOUNTER → 2024-08-30 | Outpatient (CLI) | payer OTHER ==
[2024-08-30 08:54] LABS: ALBUMIN 3.3 G/DL (3.2-5.2); ALKALINE PHOSPHATASE 72 U/L (35-104); ALT/SGPT 16 U/L (7.0-40); AST/SGOT 15 U/L (<34); BILIRUBIN,TOTAL 0.7 MG/DL (0.3-1.2); BLOOD UREA NITROGEN 13 MG/DL (9-23); CALCIUM LEVEL 8.4 MG/DL (8.5-10.1); CARBON DIOXIDE LEVEL 30 MMOL/L (20-31); CHLORIDE LEVEL 105 MMOL/L (98-107); CHOLESTEROL LEVEL 224 MG/DL (<200); CHOLESTEROL RISK RATIO 5.32 (<5); CREATININE FOR GFR 0.65 MG/DL (0.55-1.30); GLOMERULAR FILTRATION RATE > 90.0 (>60); GLUCOSE, FASTING 99 MG/DL (60-100); HDL CHOLESTEROL 42.1 MG/DL (>40); LDL CHOLESTEROL 164.7 MG/DL (<100); NON-HDL-C 181.9 MG/DL; POTASSIUM SERUM 4.2 MMOL/L (3.5-5.1); SODIUM LEVEL 140 MMOL/L (136-145); TOTAL PROTEIN 6.4 G/DL (5.7-8.2); TRIGLYCERIDES LEVEL 86 MG/DL (<150)
[2024-08-30 08:56] LABS: FREE T4 1.15 NG/DL (0.89-1.76); THYROID STIMULATING HORMONE 1.411 uIU/ML (0.55-4.78)
== END ==
LOC: M LAB 07:57
PROVIDERS: ATTEND Physician Assistant
DX: E78.00 Pure hypercholesterolemia, unspecified (principal); E66.01 Morbid (severe) obesity due to excess calories

== ENCOUNTER → 2024-11-05 | Outpatient (REF) | payer OTHER ==
[2024-11-05 17:45] LABS: BASO # 0.0 10^3/uL (0.0-0.2); BASO % 0.3 % (0.0-1.0); EOS # 0.3 10^3/uL (0.0-0.5); EOS % 4.3 % (0.0-3.0); LYMPH # 1.9 10^3/uL (1.5-5.0); LYMPH % 25.9 % (24.0-44.0); MONO # 0.3 10^3/uL (0.0-0.8); MONO % 3.6 % (2.0-8.0); NEUTROPHILS # 4.9 10^3/uL (1.5-8.5); NEUTROPHILS % 65.5 % (36.0-66.0); PLATELET COUNT, AUTOMATED 348 10^3/uL (150-450)
[2024-11-05 17:54] LABS: ERYTHROCYTE SEDIMENTATION RATE 18 mm/hr (0-20)
[2024-11-05 17:56] LABS: C REACTIVE PROTEIN QUANTITATIV 2.49 MG/DL (<1.0)
[2024-11-05 20:25] LABS: RHEUMATOID FACTOR QUANT < 3.5 IU/ML (<14)
== END ==
LOC: M SFHCADAM 13:34
PROVIDERS: ATTEND Physician Assistant
DX: L50.8 Other urticaria (principal); M79.644 Pain in right finger(s)

== ENCOUNTER → 2025-04-08 | Outpatient (CLI) | payer OTHER ==
[~2025-04-08] MED LIST changes: -IBUP-1022 PO; +IBUP600T42 PO
[2025-04-08 15:29] LABS: BASO # 0.0 10^3/uL (0.0-0.2); BASO % 0.4 % (0.0-1.0); EOS # 0.4 10^3/uL (0.0-0.5); EOS % 5.2 % (0.0-3.0); LYMPH # 1.9 10^3/uL (1.5-5.0); LYMPH % 22.7 % (24.0-44.0); MONO # 0.4 10^3/uL (0.0-0.8); MONO % 4.5 % (2.0-8.0); NEUTROPHILS # 5.7 10^3/uL (1.5-8.5); NEUTROPHILS % 67.0 % (36.0-66.0); PLATELET COUNT, AUTOMATED 370 10^3/uL (150-450)
[2025-04-08 15:57] LABS: ALT/SGPT 17 U/L (7.0-40); AST/SGOT 20 U/L (<34); CALCIUM LEVEL 8.0 MG/DL (8.5-10.1); CARBON DIOXIDE LEVEL 28 MMOL/L (20-31); CHLORIDE LEVEL 105 MMOL/L (98-107); CREATININE FOR GFR 0.74 MG/DL (0.55-1.30); GLOMERULAR FILTRATION RATE > 90.0 (>60); POTASSIUM SERUM 4.4 MMOL/L (3.5-5.1); SODIUM LEVEL 141 MMOL/L (136-145)
[2025-04-08 15:58] LABS: RHEUMATOID FACTOR QUANT < 3.5 IU/ML (<14)
[2025-04-08 16:03] LABS: THYROID PEROXIDASE ANTIBODY 42 U/ML (<60.0); THYROXINE (T4) 9.6 UG/DL (4.5-10.9); TOTAL T3 133.0 NG/DL (60.0-181.0)
[2025-04-11 15:07] LABS: THRYOGLOBULIN ANTIBODIES (ATA) < 1 IU/mL (< or = 1); THYROGLOBULIN QUANTITATIVE 10.7 ng/mL (2.8-40.9)
[2025-04-13 13:07] LABS: TRYPTASE 5.5 mcg/L (<11.0)
== END ==
LOC: M PLALAB 14:04
PROVIDERS: ATTEND Allergy & Immunology Allergy
DX: L50.1 Idiopathic urticaria (principal)

== ENCOUNTER → 2025-04-09 | Outpatient (REF) | payer OTHER ==
[2025-04-15 11:42] LABS: HPV APTIMA Not Detected (Not Detected)
== END ==
LOC: M PLALAB 09:03
PROVIDERS: ATTEND Specialist
DX: Z01.419 Encounter for gynecological examination (general) (routine) without abnormal findings (principal)